=== PATIENT | male | born 1960 | race Caucasian/White ===

== ENCOUNTER 2021-07-07 08:06 | Emergency (ER) | payer BC, OTHER ==
[~2021-07-07] VITALS: Ht 193 cm; Wt 81.6 kg
[2021-07-07 09:04] LABS: Basophils # (auto) 0.1 10 ^3/uL (0-0.2); Basophils % (auto) 0.9 % (0.0-2.0); Eosinophils # (auto) 0.1 10 ^3/uL (0-0.8); Eosinophils % (auto) 0.6 % (0.0-7.0); Hematocrit 33.1 % (41.0-53.0); Hemoglobin 11.1 g/dL (13.5-17.5); Lymphocytes # (auto) 0.5 10 ^3/uL (0.4-5.4); Lymphocytes % (auto) 4.4 % (10.0-50.0); Mean Corpuscular Hgb Conc. 33.6 g/dL (32.0-36.0); Mean Corpuscular Volume 83.5 fL (80.0-100.0); Monocytes # (auto) 1.4 10 ^3/uL (0-1.3); Monocytes % (auto) 12.6 % (0.0-12.0); Neutrophils # (auto) 9.4 10 ^3/uL (1.6-8.6); Neutrophils % (auto) 81.5 % (37.0-80.0); Red Blood Cells 3.96 10^6/uL (4.5-5.90); Red Cell Distribution Width 12.8 % (11.8-14.3); White Blood Cell 11.5 10^3/uL (4.4-10.8)
[2021-07-07 09:25] LABS: Albumin 2.1 g/dL (3.4-5.0); BUN/Creatinine Ratio 26.4; Calcium 8.8 mg/dL (8.5-10.1); Potassium 4.1 mmol/L (3.5-5.1)
[2021-07-07 09:27] LABS: Bilirubin, Total 0.6 mg/dL (0.2-1.0); Total Protein 7.1 g/dL (6.4-8.2)
[2021-07-07 13:06] LABS: Urine Bacteria FEW /hpf (None Seen); Urine Blood Negative /uL (Negative); Urine Mucus FEW (None Seen); Urine Specific Gravity 1.026 (1.001-1.035); Urine WBC 1 /hpf (0 - 3)
[2021-07-07] MEDS ORDERED: PANT40TA2 PO (14:37)
[2021-07-07] MEDS ORDERED: LEVO-28 PO (14:37)
[2021-07-07] MEDS ORDERED: cefTRIAXone 1GM/50ML D5W 50 ML IV ONE (14:45)
[2021-07-07] MEDS ORDERED: cefTRIAXone W LIDOCAINE 1 GM IM IM ONE (15:00)
[2021-07-07 15:53] VITALS: BP 120/75
== END 2021-07-07 16:19 | disposition home or self-care (01) ==
LOC: ER 08:06 → EDBD 08:06 → ER 16:19
DX: J40 Bronchitis, not specified as acute or chronic (principal); B34.9 Viral infection, unspecified; Z20.822 Contact with and (suspected) exposure to COVID-19
CPT/HCPCS: 36415; 71045; 80053; 81001; 85025; 87426; 93005; 96372; 99285; J0696